=== PATIENT | male | born 1985 | race Caucasian/White ===

== ENCOUNTER 2016-09-10 20:57 | Emergency (ER) | payer SELFPAY ==
--- NOTE | 2016-09-10 21:59 | ED ORDER SUMMARY ---
..... Patient: SAMIR MADSEN OrderSheet [facility] VisitID: [id number] [address] [place] [address] 31y, M Registration Date/Time: 09/10/2016 ORDER SHEET Weight: 86.1 kg (stated) Allergies: None GENERAL ORDERS: MEDICATION ORDERS: Lcjkyry-Axrwfu-Ctmvq Pertussis IM 0.5 mL (NOW, per protocol) (21:58 09/10/2016 Jc WEBER) (22:11 Maude Hidalgo) IV FLUIDS: ORDER SHEET NOTES: [Electronically signed by Brittni Garrett PA-C (23:23 09/10/2016)] [Electronically signed by Herminia Pope R.N. (15:14 09/11/2016)] [Electronically locked/signed by Herminia Pope R.N. (15:14 09/11/2016)]
--- NOTE | 2016-09-10 21:59 | ED ORDER SUMMARY ---
..... Patient: SAMIR MADSEN OrderSheet [facility] VisitID: [id number] [address] [place] [address] 31y, M Registration Date/Time: 09/10/2016 ORDER SHEET Weight: 86.1 kg (stated) Allergies: None GENERAL ORDERS: MEDICATION ORDERS: Cmlramz-Cnhghw-Tmkjw Pertussis IM 0.5 mL (NOW, per protocol) (21:58 09/10/2016 Jc WEBER) (22:11 Maude Hidalgo) IV FLUIDS: ORDER SHEET NOTES: [Electronically signed by Brittni Garrett PA-C (23:23 09/10/2016)] [Electronically signed by Herminia Pope R.N. (15:14 09/11/2016)] [Electronically locked/signed by Herminia Pope R.N. (15:14 09/11/2016)]
--- NOTE | 2016-09-10 21:59 | ED CLINICAL REPORT ---
Clinical Report - Physicians/Mid Levels [facility] [address] [place] [address] 09/10/2016 21:04 Patient: SAMIR MADSEN Time Seen: 21:32; initial patient contact. Arrived- By private vehicle. Historian- patient. HISTORY OF PRESENT ILLNESS Chief Complaint: Injury to the right index finger. The injury happened just prior to arrival. Occurred at work. The patient sustained a laceration from a sharp edge (cutting raw chicken). Patient is experiencing mild pain. No other injury. REVIEW OF SYSTEMS The patient sustained a single laceration to the right index finger. No swelling, tingling or numbness. All systems otherwise negative, except as recorded above. PAST HISTORY See nurses notes. The patient's dominant hand is the right. Tetanus immunization status is unknown. Problems: Anxiety attack. Medications: None. Allergies: None. SOCIAL HISTORY Never smoker. No alcohol use or drug use. ADDITIONAL NOTES The nursing notes have been reviewed with agreement regarding the chief complaint, HPI, ROS, PMH and patient medications and allergies. PHYSICAL EXAM Vital Signs: 09/10/2016 21:27 BP: 123/84. HR: 63. RR: 16. O2 saturation: 100%. Temp: 98.4 F. Pain level now: 6/10. Have been reviewed. Appearance: Alert. Oriented X3. No acute distress. Extremities: Tip of right index finger: mild tenderness and superficial 0.5 cm laceration. SEE LACERATION PROCEDURE NOTE #1. No foreign body. Hand and wrist exam otherwise negative. Extremities otherwise negative. Neuro, Vascular and Tendons: Vascular status intact. Sensation intact. Motor intact. Tendon function intact. PROGRESS AND PROCEDURES Laceration Repair: Location: right index finger. Length: 0.5cm. Complexity: simple (closed with tissue adhesive). Wound depth/shape- subcutaneous and linear. Distal neuro/vascular/tendon status normal. Prepped with chlorhexidine. Closure of superficial layer. Skin adhesive used. No local anesthesia. Post-procedure: he is stable and there are no complications. Bleeding is controlled and neuro-vascular status is intact distal to the wound. Dressing applied. Tetanus immunization given. Estimated blood loss: 0 mL. ( steri strip applied). Course of Care: Patient is stable. Physical exam findings are improved. Symptoms better. CLINICAL IMPRESSION Single superficial laceration to the right index finger.No foreign body present or right fingernail injury. INSTRUCTIONS Elevate affected areas above chest level. Protect wound and keep wound area clean. Change dressing daily. Keep wounds dry. Allow steri-strips to remain in place until they loosen. Limit use of your hand for two days as needed and until better. No dietary restrictions. Warnings: COMPLICATIONS: Complications from this condition are possible. Future problems may include infection and scarring. It is important to follow up with a physician for further evaluation and treatment. TETANUS: You were given a tetanus shot during your visit. Make a note for future reference. Prescription Medications: Cephalexin 500 mg: take 1 capsule orally every 6 hours for 5 days. No refill. Follow-up: Follow up with your doctor if not better. Understanding of the discharge instructions verbalized by patient. (Electronically signed by Brittni Garrett PA-C 09/10/2016 23:23)
--- NOTE | 2016-09-10 21:59 | ED NURSING NOTES ---
Clinical Report - Nurses [facility] [place] [address] 09/10/2016 21:04 Patient: SAMIR MADSEN TRIAGE Triage time 21:Sep 10 2016. Acuity: LEVEL 4. Chief Complaint: (right index laceration). Not alert. In distress. ISHAN COMA SCORE: [place] Coma Scale: 15- eyes open spontaneously (4); best verbal response- oriented x 4 (5); best motor response- obeys commands (6). --21:30 Herminia Pope R.N. 21:27 09/10/16. BP: 123/84. HR: 63. RR: 16. O2 saturation: 100%. Temp: 98.4 F. Pain level now: 11/26. --21:30 Herminia Pope R.N. Weight: 86.1 kg stated. Height/Length: 73 inches Per Patient. BMI: 25. --21:29 Herminia Pope R.N. Medications None. --21:27 Herminia Pope R.N. Allergies None. --21:27 Herminia Pope R.N. History Arrived by private vehicle. Historian: patient. This did not begin last night. PAST MEDICAL HX: Immunizations: status is unknown. SOCIAL HX: Not occasional drug user. No marijuana. Never smoker. No alcohol use. No infectious disease exposure. SELF HARM ASSESSMENT: A self harm assessment was performed. The patient answered "no" to the question "Do you have thoughts of harming or killing yourself?". FALL RISK ASSESSMENT: Fall risk assessment completed. No fall risk identified. NUTRITIONAL RISK ASSESSMENT: The nutritional risk assessment revealed no deficiencies. FUNCTIONAL ASSESSMENT: Functional assessment: no impairments noted. LEARNING NEEDS ASSESSMENT: The learning needs assessment revealed no barriers. ABUSE ASSESSMENT: Abuse assessment: The patient was asked "Do you feel safe in your home?". SKIN INTEGRITY ASSESSMENT: Skin integrity risk assessment completed. No skin integrity risk identified. --21:30 Herminia Pope R.N. PROBLEMS: Anxiety attack. --21:28 Herminia Pope R.N. Interventions ID band on patient. He was not taken to a room. --21:30 Herminia Pope R.N. PHYSICAL ASSESSMENT GENERAL / NEURO / PSYCH: Alert. Oriented X 4. Appears in no acute distress. HEENT: Mucous membranes are not pink. RESPIRATORY: Chest nontender. CVS: Capillary refill less than 2 seconds. GI / : Abdomen nontender. SKIN: Skin is warm but moist. --21:30 Herminia Pope R.N. NURSING PROGRESS NOTES The plan of care for this patient includes an assessment with efforts to address the presence of pain. Two patient identifiers checked. Call light placed in reach. Side rails up x 1. Bed placed in lowest position. Brakes of bed on. Patient ready for evaluation- chart flagged. --21:31 Herminia Pope R.N. 22:11 09/10/2016 [id number] PERTUSSIS IM 0.5 mL given. (Lot#: [id number], expiration date: 03/26/2018, Interior Wall Assembler: sanofi pasteur). Given in the right deltoid. Allergies verified and confirmed 5 rights. Vaccine information statement provided to the patient. --22:11 Herminia Pope R.N. DISPOSITION / DISCHARGE late entry - 23:30 09/10/16. Departure time: 23:Sep 10 2016. Condition at departure: improved. No learning barriers present. Discharge instructions provided and reviewed with the patient. Reviewed referral to a primary care physician. Work note given. Patient verbalized understanding. Written instructions provided in Spanish. The patient was discharged home. He left the Emergency Department ambulatory and via private vehicle. Patient driving. FALL RISK ASSESSMENT: Fall risk assessment completed. No fall risk identified. --15:14 Herminia Pope R.N. Locked/Released at 09/11/2016 15:14 by Herminia Pope R.N.
--- NOTE | 2016-09-10 21:59 | ED NURSING NOTES ---
Clinical Report - Nurses [facility] [address] [address] [place] [address] 09/10/2016 21:04 Patient: SAMIR MADSEN TRIAGE Triage time 21:Sep 10 2016. Acuity: LEVEL 4. Chief Complaint: (right index laceration). Not alert. In distress. ISHAN COMA SCORE: [place] Coma Scale: 15- eyes open spontaneously (4); best verbal response- oriented x 4 (5); best motor response- obeys commands (6). --21:30 Herminia Pope R.N. 21:27 09/10/16. BP: 123/84. HR: 63. RR: 16. O2 saturation: 100%. Temp: 98.4 F. Pain level now: 11/26. --21:30 Herminia Pope R.N. Weight: 86.1 kg stated. Height/Length: 73 inches Per Patient. BMI: 25. --21:29 Herminia Pope R.N. Medications None. --21:27 Herminia Pope R.N. Allergies None. --21:27 Herminia Pope R.N. History Arrived by private vehicle. Historian: patient. This did not begin last night. PAST MEDICAL HX: Immunizations: status is unknown. SOCIAL HX: Not occasional drug user. No marijuana. Never smoker. No alcohol use. No infectious disease exposure. SELF HARM ASSESSMENT: A self harm assessment was performed. The patient answered "no" to the question "Do you have thoughts of harming or killing yourself?". FALL RISK ASSESSMENT: Fall risk assessment completed. No fall risk identified. NUTRITIONAL RISK ASSESSMENT: The nutritional risk assessment revealed no deficiencies. FUNCTIONAL ASSESSMENT: Functional assessment: no impairments noted. LEARNING NEEDS ASSESSMENT: The learning needs assessment revealed no barriers. ABUSE ASSESSMENT: Abuse assessment: The patient was asked "Do you feel safe in your home?". SKIN INTEGRITY ASSESSMENT: Skin integrity risk assessment completed. No skin integrity risk identified. --21:30 Herminia Pope R.N. PROBLEMS: Anxiety attack. --21:28 Herminia Pope R.N. Interventions ID band on patient. He was not taken to a room. --21:30 Herminia Pope R.N. PHYSICAL ASSESSMENT GENERAL / NEURO / PSYCH: Alert. Oriented X 4. Appears in no acute distress. HEENT: Mucous membranes are not pink. RESPIRATORY: Chest nontender. CVS: Capillary refill less than 2 seconds. GI / : Abdomen nontender. SKIN: Skin is warm but moist. --21:30 Herminia Pope R.N. NURSING PROGRESS NOTES The plan of care for this patient includes an assessment with efforts to address the presence of pain. Two patient identifiers checked. Call light placed in reach. Side rails up x 1. Bed placed in lowest position. Brakes of bed on. Patient ready for evaluation- chart flagged. --21:31 Herminia Pope R.N. 22:11 09/10/2016 QDQHYGZ-[id number]-SVARQ PERTUSSIS IM 0.5 mL given. (Lot#: [id number], expiration date: 03/26/2018, Radiology Tech: sanofi pasteur). Given in the right deltoid. Allergies verified and confirmed 5 rights. Vaccine information statement provided to the patient. --22:11 Herminia Pope R.N. DISPOSITION / DISCHARGE late entry - 23:30 09/10/16. Departure time: 23:Sep 10 2016. Condition at departure: improved. No learning barriers present. Discharge instructions provided and reviewed with the patient. Reviewed referral to a primary care physician. Work note given. Patient verbalized understanding. Written instructions provided in Malawian. The patient was discharged home. He left the Emergency Department ambulatory and via private vehicle. Patient driving. FALL RISK ASSESSMENT: Fall risk assessment completed. No fall risk identified. --15:14 Herminia Pope R.N. Locked/Released at 09/11/2016 15:14 by Herminia Pope R.N.
--- NOTE | 2016-09-11 15:15 | ED MED RECONCILIATION SUMMARY ---
Patient: SAMIR MADSEN Medication Reconciliation Report [facility] VisitID: [id number] [address] [place] [address] 31y, M Registration Date/Time: 09/10/2016 Weight: 86.1 kg Height/Length: 73 in. BMI: 25.0 ALLERGIES: None The patient's Home Medications are listed below: NONE. The source(s) of the original Home Medication information: Not obtained. The following Medications were given to the patient in the Emergency Department: [id number]-[id number] PERTUSSIS [IM] IM 0.5 mL, administered: 09/10/2016 10:11:00 PM The following Medications were prescribed to the patient: Cephalexin 500 mg: take 1 capsule orally every 6 hours for 5 days. No refill. -- Brittni Garrett PA-C
--- NOTE | 2016-09-11 15:15 | ED DISCHARGE INSTRUCTIONS ---
Patient: SAMIR MADSEN General Instructions Merged [facility] VisitID: [id number] [place] [address] 31y, M Registration Date/Time: 09/10/2016 Single superficial laceration to the right index finger.No foreign body present or right fingernail injury. INSTRUCTIONS Elevate affected areas above chest level. Protect wound and keep wound area clean. Change dressing daily. Keep wounds dry. Allow steri-strips to remain in place until they loosen. Limit use of your hand for two days as needed and until better. No dietary restrictions. Warnings: COMPLICATIONS: Complications from this condition are possible. Future problems may include infection and scarring. It is important to follow up with a physician for further evaluation and treatment. TETANUS: You were given a tetanus shot during your visit. Make a note for future reference. Prescription Medications: Cephalexin 500 mg: take 1 capsule orally every 6 hours for 5 days. No refill. Follow-up: Follow up with your doctor if not better. Understanding of the discharge instructions verbalized by patient. ADDITIONAL INFORMATION Laceration (All Closures) Alaceration is a cut through the skin. This will usually require stitches (sutures) or mae if it is deep. Minor cuts may be treated with a surgical tape closure orskin glue. Home care The following guidelines will help you care for your laceration at home: Extremity, face, or trunk wounds Keep the wound clean and dry. If a bandage was applied and it becomes wet or dirty, replace it. Otherwise, leave it in place for the first 24 hours. If stitches or mae were used, clean the wound daily. After removing the bandage, wash the area with soap and water. Use a wet cotton swab to loosen and remove any blood or crust that forms. The doctor may prescribe an antibiotic cream or ointment to prevent infection. Do not stop taking this medication until you have finished the prescribed course or the doctor tells you to stop. The doctor may also prescribe medications for pain. Follow the doctors instructions for taking these medications. You may remove the bandage to shower as usual after the first 24 hours, but do not soak the area in water (no swimming) until the stitches or mae are removed. If surgical tape was used, keep the area clean and dry. If it becomes wet, blot it dry with a towel. If skin glue was used, do not scratch, rub, or pick at the adhesive film. Do not place tape directly over the film. Do not apply liquid, ointment, or creams to the wound while the film is in place. Do not clean the wound with peroxide and do not apply ointments. Avoid activities that cause heavy sweating until the film has fallen off. Protect the wound from prolonged exposure to sunlight or tanning lamps. You may shower as usual but do not soak the wound in water (no baths or swimming). The film will fall off by itself in 510 days. Scalp wounds During the first two days, you may carefully rinse your hair in the shower to remove blood, glass or dirt particles. After two days, you may shower and shampoo your hair normally. Do not soak your scalp in the tub or go swimming until the stitches or mae have been removed. Talk with your doctor before applying any antibiotic ointment to the wound. Mouth wounds Eat soft foods to reduce pain. If the cut is inside of your mouth, clean by rinsing after each meal and at bedtime with a mixture of equal parts water and hydrogen peroxide (do not swallow!). Or, you can use a cotton swab to directly apply hydrogen peroxide onto the cut. Mouth wounds can be painful when eating. You may use an mygb-bzq-rzqhfin local numbing solution for pain relief. If this is not available, you may use any numbing solution for teething babies. You may apply this directly to the sores with a cotton-tip swab or with your finger. Follow-up care Follow up with your health care provider. Most skin wounds heal within ten days. Mouth and facial wounds heal within five days. However, even with proper treatment, a wound infection may sometimes occur. Therefore, you should check the wound daily for signs of infection listed below. Stitches should be removed from the face within five days; stitches and mae should be removed from other parts of the body within 714 days. If dissolving stitches were used in the mouth, these will fall out or dissolve without the need for removal. If tape closures were used, remove them yourself if they have not fallen off after 7 days. Ifskin glue was used, the film will fall off by itself in 510 days. When to seek medical care Get prompt medical attention if any of these occur: Bleeding not controlled by direct pressure Signs of infection, including increasing pain in the wound, increasing wound redness or swelling, or pus coming from the wound Fever of 100.4F (38C) or higher, or as directed by your health care provider Stitches or mae come apart or fall out or surgical tape falls off before 7 days Wound edges re-open Diphtheria Toxoid Adsorbed, Pertussis Vaccine, Acellular (Adsorbed), Tetanus Toxoid, Adsorbed Suspension for injection What is this medicine? DIPHTHERIA and TETANUS TOXOIDS; PERTUSSIS VACCINE (dif THEER ee uh and TET n us TOK soids; per TUS iss vak SEEN) is used to prevent diphtheria, tetanus, and pertussis infections. How should I use this medicine? This vaccine is for injection into a muscle. It is given by a health youth care specialist. A copy of Vaccine Information Statements will be given before each vaccination. Read this sheet carefully each time. The sheet may change frequently. Talk to your antique furniture restorer regarding the use of this vaccine in children. While the DTP vaccine may be given to children ages 6 weeks to 7 years and the Tdap vaccine may be given to children at least 10 years old, precautions do apply. What side effects may I notice from receiving this medicine? Side effects that you should report to your doctor or health youth care specialist as soon as possible: allergic reactions like skin rash, itching or hives, swelling of the face, lips, or tongue breathing problems fever of 103 degrees F or more flu-like symptoms inconsolable crying infection pain, tingling, numbness in the hands or feet seizures swelling of arm or leg that was injected unusually weak or tired Side effects that usually do not require immediate medical attention (report these side effects to your doctor or health youth care specialist if they continue or are bothersome): fussy, irritable loss of appetite fever of 102 degrees F or less pain, tenderness, redness, swelling, or a 'knot' at site where injected vomiting What may interact with this medicine? immune globulin medicines that suppress your immune function like adalimumab, anakinra, infliximab medicines to treat cancer medicines that treat or prevent blood clots like warfarin, enoxaparin, and dalteparin steroid medicines like prednisone or cortisone What if I miss a dose? It is important not to miss your dose. Call your doctor or health youth care specialist if you are unable to keep an appointment. Where should I keep my medicine? This drug is given in a hospital or clinic and will not be stored at home. What should I tell my health care provider before I take this medicine? They need to know if you have any of these conditions: blood disorders like hemophilia fever or infection immune system problems neurologic disease seizures an unusual or allergic reaction to vaccines, thimerosal, latex, other medicines, foods, dyes, or preservatives or trying to get breast-feeding What should I watch for while using this medicine? See your health care provider for all shots of this vaccine as directed. To have protection from infection, you must have 3 shots of this vaccine plus boosters as needed. Tell your doctor right away if you have any serious or unusual side effects after getting this vaccine. You have been given the following additional information: Laceration, All Diphtheria Toxoid Adsorbed, Pertussis Vaccine, Acellular (Adsorbed), Tetanus Toxoid, Adsorbed Suspension for injection Limit use of your hand for two days as needed and until better. (Electronically signed by Brittni Garrett PA-C 09/10/2016 23:23)
--- NOTE | 2016-09-11 15:15 | ED MAR SUMMARY ---
..... Medication Administration Record [facility] [address] [place] [address] Patient: SAMIR MADSEN Visit ID: [id number] 31y, M Weight: 86.1 kg Height/Length: 73 in BMI: 25 ALLERGIES: None Given 22:11 09/10/2016 Herminia Pope R.N. Medication Administered: [id number]-[id number] PERTUSSIS [IM], Dose: 0.5 mL IM. Medication Ordered: Wcymmrd-Puoozf-Jkobo Pertussis IM 0.5 mL (NOW, per protocol).
--- NOTE | 2016-09-11 15:15 | ED DISCHARGE INSTRUCTIONS ---
Patient: SAMIR MADSEN General Instructions [facility] VisitID: [id number] [place] [address] 31y, M Registration Date/Time: 09/10/2016 Single superficial laceration to the right index finger.No foreign body present or right fingernail injury. INSTRUCTIONS Elevate affected areas above chest level. Protect wound and keep wound area clean. Change dressing daily. Keep wounds dry. Allow steri-strips to remain in place until they loosen. Limit use of your hand for two days as needed and until better. No dietary restrictions. Warnings: COMPLICATIONS: Complications from this condition are possible. Future problems may include infection and scarring. It is important to follow up with a physician for further evaluation and treatment. TETANUS: You were given a tetanus shot during your visit. Make a note for future reference. Prescription Medications: Cephalexin 500 mg: take 1 capsule orally every 6 hours for 5 days. No refill. Follow-up: Follow up with your doctor if not better. Understanding of the discharge instructions verbalized by patient. ADDITIONAL INFORMATION Laceration (All Closures) Alaceration is a cut through the skin. This will usually require stitches (sutures) or mae if it is deep. Minor cuts may be treated with a surgical tape closure orskin glue. Home care The following guidelines will help you care for your laceration at home: Extremity, face, or trunk wounds Keep the wound clean and dry. If a bandage was applied and it becomes wet or dirty, replace it. Otherwise, leave it in place for the first 24 hours. If stitches or mae were used, clean the wound daily. After removing the bandage, wash the area with soap and water. Use a wet cotton swab to loosen and remove any blood or crust that forms. The doctor may prescribe an antibiotic cream or ointment to prevent infection. Do not stop taking this medication until you have finished the prescribed course or the doctor tells you to stop. The doctor may also prescribe medications for pain. Follow the doctors instructions for taking these medications. You may remove the bandage to shower as usual after the first 24 hours, but do not soak the area in water (no swimming) until the stitches or mae are removed. If surgical tape was used, keep the area clean and dry. If it becomes wet, blot it dry with a towel. If skin glue was used, do not scratch, rub, or pick at the adhesive film. Do not place tape directly over the film. Do not apply liquid, ointment, or creams to the wound while the film is in place. Do not clean the wound with peroxide and do not apply ointments. Avoid activities that cause heavy sweating until the film has fallen off. Protect the wound from prolonged exposure to sunlight or tanning lamps. You may shower as usual but do not soak the wound in water (no baths or swimming). The film will fall off by itself in 510 days. Scalp wounds During the first two days, you may carefully rinse your hair in the shower to remove blood, glass or dirt particles. After two days, you may shower and shampoo your hair normally. Do not soak your scalp in the tub or go swimming until the stitches or mae have been removed. Talk with your doctor before applying any antibiotic ointment to the wound. Mouth wounds Eat soft foods to reduce pain. If the cut is inside of your mouth, clean by rinsing after each meal and at bedtime with a mixture of equal parts water and hydrogen peroxide (do not swallow!). Or, you can use a cotton swab to directly apply hydrogen peroxide onto the cut. Mouth wounds can be painful when eating. You may use an [id number] local numbing solution for pain relief. If this is not available, you may use any numbing solution for teething babies. You may apply this directly to the sores with a cotton-tip swab or with your finger. Follow-up care Follow up with your health care provider. Most skin wounds heal within ten days. Mouth and facial wounds heal within five days. However, even with proper treatment, a wound infection may sometimes occur. Therefore, you should check the wound daily for signs of infection listed below. Stitches should be removed from the face within five days; stitches and mae should be removed from other parts of the body within 714 days. If dissolving stitches were used in the mouth, these will fall out or dissolve without the need for removal. If tape closures were used, remove them yourself if they have not fallen off after 7 days. Ifskin glue was used, the film will fall off by itself in 510 days. When to seek medical care Get prompt medical attention if any of these occur: Bleeding not controlled by direct pressure Signs of infection, including increasing pain in the wound, increasing wound redness or swelling, or pus coming from the wound Fever of 100.4F (38C) or higher, or as directed by your health care provider Stitches or mae come apart or fall out or surgical tape falls off before 7 days Wound edges re-open Diphtheria Toxoid Adsorbed, Pertussis Vaccine, Acellular (Adsorbed), Tetanus Toxoid, Adsorbed Suspension for injection What is this medicine? DIPHTHERIA and TETANUS TOXOIDS; PERTUSSIS VACCINE (dif THEER ee uh and TET n us TOK soids; per TUS iss vak SEEN) is used to prevent diphtheria, tetanus, and pertussis infections. How should I use this medicine? This vaccine is for injection into a muscle. It is given by a health disabilities caregiver. A copy of Vaccine Information Statements will be given before each vaccination. Read this sheet carefully each time. The sheet may change frequently. Talk to your grants director regarding the use of this vaccine in children. While the DTP vaccine may be given to children ages 6 weeks to 7 years and the Tdap vaccine may be given to children at least 10 years old, precautions do apply. What side effects may I notice from receiving this medicine? Side effects that you should report to your doctor or health disabilities caregiver as soon as possible: allergic reactions like skin rash, itching or hives, swelling of the face, lips, or tongue breathing problems fever of 103 degrees F or more flu-like symptoms inconsolable crying infection pain, tingling, numbness in the hands or feet seizures swelling of arm or leg that was injected unusually weak or tired Side effects that usually do not require immediate medical attention (report these side effects to your doctor or health disabilities caregiver if they continue or are bothersome): fussy, irritable loss of appetite fever of 102 degrees F or less pain, tenderness, redness, swelling, or a 'knot' at site where injected vomiting What may interact with this medicine? immune globulin medicines that suppress your immune function like adalimumab, anakinra, infliximab medicines to treat cancer medicines that treat or prevent blood clots like warfarin, enoxaparin, and dalteparin steroid medicines like prednisone or cortisone What if I miss a dose? It is important not to miss your dose. Call your doctor or health disabilities caregiver if you are unable to keep an appointment. Where should I keep my medicine? This drug is given in a hospital or clinic and will not be stored at home. What should I tell my health care provider before I take this medicine? They need to know if you have any of these conditions: blood disorders like hemophilia fever or infection immune system problems neurologic disease seizures an unusual or allergic reaction to vaccines, thimerosal, latex, other medicines, foods, dyes, or preservatives or trying to get breast-feeding What should I watch for while using this medicine? See your health care provider for all shots of this vaccine as directed. To have protection from infection, you must have 3 shots of this vaccine plus boosters as needed. Tell your doctor right away if you have any serious or unusual side effects after getting this vaccine. You have been given the following additional information: Laceration, All Diphtheria Toxoid Adsorbed, Pertussis Vaccine, Acellular (Adsorbed), Tetanus Toxoid, Adsorbed Suspension for injection Limit use of your hand for two days as needed and until better. (Electronically signed by Brittni Garrett PA-C 09/10/2016 23:23)
--- NOTE | 2016-09-11 15:15 | ED MAR SUMMARY ---
..... Medication Administration Record [facility] [address] [place] [address] Patient: SAMIR MADSEN Visit ID: [id number] 31y, M Weight: 86.1 kg Height/Length: 73 in BMI: 25 ALLERGIES: None Given 22:11 09/10/2016 Herminia Pope R.N. Medication Administered: [id number] PERTUSSIS [IM], Dose: 0.5 mL IM. Medication Ordered: [id number] Pertussis IM 0.5 mL (NOW, per protocol).
--- NOTE | 2016-09-11 15:15 | ED MED RECONCILIATION SUMMARY ---
Patient: SAMIR MADSEN Medication Reconciliation Report [facility] VisitID: [id number] [address] [place] [address] 31y, M Registration Date/Time: 09/10/2016 Weight: 86.1 kg Height/Length: 73 in. BMI: 25.0 ALLERGIES: None The patient's Home Medications are listed below: NONE. The source(s) of the original Home Medication information: Not obtained. The following Medications were given to the patient in the Emergency Department: [id number] PERTUSSIS [IM] IM 0.5 mL, administered: 09/10/2016 10:11:00 PM The following Medications were prescribed to the patient: Cephalexin 500 mg: take 1 capsule orally every 6 hours for 5 days. No refill. -- Brittni Garrett PA-C
== END 2016-09-10 23:01 | disposition home or self-care (01) ==
LOC: ED SRH 20:57
DX: S61.210A Laceration without foreign body of right index finger without damage to nail, initial encounter (principal); W26.0XXA Contact with knife, initial encounter; Y92.89 Other specified places as the place of occurrence of the external cause; Y93.89 Activity, other specified; Y99.0 Civilian activity done for income or pay
CPT/HCPCS: 82708